=== PATIENT | female | born 2005 | race African-American/Black ===

== ENCOUNTER 2025-07-10 20:09 | Emergency (ER) | payer OTHER, SELFPAY ==
[2025-07-10 20:12] VITALS: BP 103/66; PULSE 85; RESP 14; TEMP 36.4; O2SAT 98
[2025-07-10 21:47] LABS: Hematocrit 35.4 % (37.0-47.0); Hemoglobin 11.5 g/dL (12.0-15.0); Immature Granulocyte Percent A 0.3 % (0-0.5); Immature Platelet Fraction Pct 2.8 % (0.9-11.2); Lymphocytes Absolute Auto 1.33 K/mm3 (0.9-3.2); Mean Corpuscular HGB Conc 32.5 g/dl (32-36); Mean Corpuscular Hemoglobin 24.4 pg (26-34); Mean Corpuscular Volume 75.0 fl (80-100); Nucleated Red Blood Cells Absolute Auto 0.000 K/mm3 (0.0-0.012); Nucleated Red Blood Cells Perc 0.0 % (0.0-0.2); Platelet Count Result 211 k/mm3 (150-375); Red Blood Count 4.72 M/mm3 (4.2-5.4); White Blood Count 10.5 K/mm3 (4.5-10.0)
[2025-07-10 21:58] LABS: Alanine Aminotransferase 17 U/L (6-35); Albumin Level 4.5 g/dL (3.5-5.1); Alkaline Phosphatase 74 U/L (38-126); Anion Gap 9 mmol/L (4-12); Aspartate Amino Transferase 31 U/L (14-36); Bilirubin,Total 0.5 mg/dL (0.2-1.3); Blood Urea Nitrogen 7 mg/dL (7-17); Calcium 9.2 mg/dL (8.4-10.2); Carbon Dioxide 21 mmol/L (22-30); Chloride 105 mmol/L (98-107); Estimated Glomerular Filt Rate > 60; Glucose 101 mg/dL (65-110); Lipase 109 U/L (23-300); Potassium 3.8 mmol/L (3.4-5.0); Sodium 135 mmol/L (137-145); Total Protein 8.4 g/dL (6.3-8.2)
[2025-07-10] MEDS: SODIUM CHLORIDE 0.9% IV 1,000 ML 999 ML IV CONT (22:17)
[2025-07-10 22:18] VITALS: BP 122/84; PULSE 72; RESP 16; TEMP 36.7; O2SAT 100
--- NOTE | 2025-07-10 22:18 | ED_ITS ---
HPI - Nausea/Vomiting/Diarrhea General Chief complaint: Nausea/Vomiting/Diarrhea Stated complaint: n/v x8, abdominal pain Time Seen by Provider: 07/10/25 21:23 Source: patient Mode of arrival: EMS Limitations: no limitations History of Present Illness HPI Narrative: This is a 20-year-old female that presents emergency department for nausea and vomiting. Reports this is common for her part to starting her menstrual period. She was given Zofran via EMS and has been hydrated. She is feeling better at this time. No abdominal pain currently. Denies fevers. Related Data Allergies Allergy/AdvReac Type Severity Reaction Status Date / Time albuterol Allergy Unknown Palpitation Verified 07/10/25 20:12 s Review of Systems 2 Review of Systems: All systems reviewed & are unremarkable except as noted in HPI and below PMFSH Past Medical History Medical History (Updated 07/10/25 @ 23:07 by Cathy Gloria PA-C) No active medical problems Exam 2 Narrative: GENERAL: Well-appearing, well-nourished, and in no acute distress. HEAD: Normocephalic, atraumatic. EYES: EOMI. CHEST: Clear to auscultation. No respiratory distress. No wheezes rales or rhonchi HEART: Regular rate and rhythm. No murmur heard. Normal peripheral pulses. ABDOMEN: Soft, nontender, nondistended, normal active bowel sounds. EXTREMITIES: Normal range of motion. No edema. SKIN: Warm, dry, no rash. NEURO: No focal deficits. Alert and oriented x3. PSYCH: Normal mood and affect Course Vital Signs Vital signs: Vital Signs Temperature 97.6 F 07/10/25 20:12 Pulse Rate 85 07/10/25 20:12 Respiratory Rate 14 07/10/25 20:12 Blood Pressure 103/66 07/10/25 20:12 Pulse Oximetry 98 07/10/25 20:12 Temperature 98.1 F 07/10/25 22:18 Pulse Rate 72 07/10/25 22:18 Respiratory Rate 16 07/10/25 22:18 Blood Pressure 122/84 07/10/25 22:18 Pulse Oximetry 100 07/10/25 22:18 Oxygen Delivery Room Air 07/10/25 22:18 MDM - Nausea/Vomiting/Diarrhea MDM Narrative Medical decision making narrative: Patient presents the emergency department for nausea and vomiting. Reports this is common for her when she starts her menstrual cycle. She is afebrile and nontoxic appearing. Her vitals are stable. Abdomen is soft and nontender. Patient reports relief after IV fluids and Zofran. CBC with mild leukocytosis to 10.5. Shows microcytic anemia hemoglobin of 11.5. Urine without overt evidence of infection. test is negative. Patient updated on her workup and agrees with plan of care. She is to follow up with primary provider. She was given warnings to return to the ER Differential Diagnosis Differential diagnosis: Likely food poisoning, gastroenteritis, dehydration and other (premenstrual syndrome) Lab Data Attestation: I reviewed the patient's lab results. 07/10/25 21:39 07/10/25 21:39 Labs: Lab Results 07/10/25 07/10/25 07/10/25 Range/Units 21:39 22:18 22:20 WBC 10.5 H (4.5-10.0) K/mm3 RBC 4.72 (4.2-5.4) M/mm3 Hgb 11.5 L (12.0-15.0) g/dL Hct 35.4 L (37.0-47.0) % MCV 75.0 L (80-100) fl MCH 24.4 L (26-34) pg MCHC 32.5 (32-36) g/dl RDW 16.5 H (11.5-14.5) % Plt Count 211 (150-375) k/mm3 MPV 10.3 (7.4-10.4) fl Immature Gran % (Auto) 0.3 (0-0.5) % Neut % (Auto) 80.2 H (45.5-73.1) % Lymph % (Auto) 12.7 L (18.3-44.2) % [place] % (Auto) 4.9 (2.6-8.5) % Eos % (Auto) 1.5 (0-4.4) % Baso % (Auto) 0.4 (0.2-1.2) % Lymph # (Auto) 1.33 (0.9-3.2) K/mm3 [place] # (Auto) 0.5 (0.1-0.6) K/mm3 Eos # (Auto) 0.2 (0-0.3) K/mm3 Baso # (Auto) 0.0 (0.0-0.1) K/mm3 Abs Immat Gran (auto) 0.03 (0.00-0.031) K/mm3 Absolute Neuts (auto) 8.4 H (1.3-6.7) K/mm3 Absolute Nucleated RBC 0.000 (0.0-0.012) K/mm3 Nucleated RBC % 0.0 (0.0-0.2) % % Immature Plt Fraction 2.8 (0.9-11.2) % Sodium 135 L (137-145) mmol/L Potassium 3.8 (3.4-5.0) mmol/L Chloride 105 (98-107) mmol/L Carbon Dioxide 21 L (22-30) mmol/L Anion Gap 9 (4-12) mmol/L BUN 7 (7-17) mg/dL Creatinine 0.59 L (0.7-1.0) mg/dL Estim Creat Clear Calc Not Reportable Estimated GFR > 60 (59 - ) Glucose 101 (65-110) mg/dL Calcium 9.2 (8.4-10.2) mg/dL Total Bilirubin 0.5 (0.2-1.3) mg/dL AST 31 (14-36) U/L ALT 17 (6-35) U/L Alkaline Phosphatase 74 (38-126) U/L Total Protein 8.4 H (6.3-8.2) g/dL Albumin 4.5 (3.5-5.1) g/dL Lipase 109 (23-300) U/L Urine Color Yellow (Yellow) Urine Appearance Cloudy H (Clear) Urine pH >=9.0 H (5.0-9.0) Ur Specific [place] 1.021 (1.001-1.035) Urine Protein 1+ H (Negative) mg/dL Urine Glucose (UA) Negative (Negative) mg/dL Urine Ketones Trace H (Negative) mg/dL Ur Blood (Man) 3+ H (Negative) Urine Nitrate Negative (Negative) Urine Bilirubin Negative (Negative) Urine Urobilinogen 1.0 (<2.0) mg/dL Leukocyte Esterase Rfl 1+ H (Negative) RENA/UL Urine RBC >100 H (0-2) /hpf Urine WBC 6-10 H (0-3) /hpf Ur Squamous Epith Cells None seen (Few) /hpf Urine Bacteria None seen /hpf Urine Casts 0-2 POC Urine HCG, Qual Negative (Negative) Critical Care Time Critical Care Time Critical Care Time: No Discharge Plan Discharge Clinical Impression: Nausea and vomiting Qualifiers: Vomiting type: unspecified Qualified Code(s): R11.2 - Nausea with vomiting, unspecified Patient Disposition: Home Condition: Improved Instructions: Acute Nausea and Vomiting (ED) Additional Instructions: Return to the ER if you experience fever, abdominal pain with nausea and vomiting, you are unable to keep down liquids or solids, pain or burning with urination, blood in the urine or any other symptoms that are concerning to you Small, frequent meals. [place] diet. Remain well hydrated Follow up with primary care doctor Patient Language: Kazakh Prescriptions: New ondansetron 4 mg tablet,disintegrating 4 mg PO Q8H PRN (Reason: nausea and vomiting) Qty: 10 0RF Follow-up/Referrals: UNKNOWN,DOCTOR [Primary Care Provider] - Stand Alone Forms: Work/School Release IP
[2025-07-10 22:20] LABS: BEDSIDEPREGUCG Negative (Negative)
--- OUTSIDE RECORDS SUMMARY | 2025-07-10 22:20 | XMS_ITS | Clinical Summary ---
Author Organization [facility] Address [address] [place] [address] Care Team Providers Care Battery Plate Assembler Name Role Phone Nicholas Mabry MD Primary Care Provider [phone] Bacilio Díaz Unavailable Unavailable Em Harman Unavailable Unavailable Social History Tobacco Use Types Packs/Day Years Used Date Smoking Tobacco: Never Assessed Comments Unknown Sex and Gender Information Value Date Recorded Sex Assigned at Not on file Legal Sex Female 7:30 PM THREE DIMENSIONAL MAP MODELER Gender Identity Not on file Sexual Orientation Not on file Plan of Treatment Health Maintenance Due Date Last Done Comments RSV (NIRSEVIMAB) Aged Out No longer e ligible based on patient's age to complete this topic Care Teams Battery Plate Assembler Relationship Specialty Start Date End Date Nicholas Mabry MD [address] [facility] [place] [address] PCP - General 04/20/09 Bacilio Díaz 08/12/10 Em Harman 08/12/10
--- OUTSIDE RECORDS SUMMARY | 2025-07-10 22:20 | XMS_ITS | Clinical Summary ---
Author Organization [facility] Address [address] [place] [address] Care Team Providers Care Gem Technician Name Role Phone Physician, Not [facility] Primary Care Provider Unavailable Allergies No known active allergies Medications Cyclobenzaprine (FLEXERIL) 10 MG PO Tab Take 2 Tabs by mouth three times per day as needed. 30 Tab 3 Active Acetaminophen (TYLENOL) 325 MG PO Tab Take 1-2 Tabs by mouth every 4 hours as needed for Mild Pain (Pain Scale 1-3). 30 Tab 3 Active Ibuprofen (MOTRIN) 600 MG PO Tab Take 1 Tab by mouth every 6 hours as needed. 30 Tab 3 Active Albuterol HFA Inhaler 108 (90 Base) MCG/ACT IN Aero Soln 2 Puffs inhale every 4 hours as needed. Please wait 5 minutes between puffs. Use with spacer. 1 Each 3 Active predniSONE 10 MG PO Tab Take Prednisone 40mg po daily x 2 days, Then Prednisone 30mg po daily x 2 days, Then Prednisone 20mg po daily x 2 days, Then Prednisone 10mg po daily x 2 days Then STOP. 20 Tab 3 Active Social History Tobacco Use Types Packs/Day Years Used Date Smoking Tobacco: Never Passive Smoke Exposure: Never Smokeless Tobacco: Never Tobacco Cessation:Counseling Given: Not Answered Comments No Sex and Gender Information Value Date Recorded Sex Assigned at Not on file Legal Sex Female 6:51 PM CDT Gender Identity Not on file Sexual Orientation Not on file Last Filed Vital Signs Vital Sign Reading Time Taken Comments Blood Pressure 124/76 11/18/2023 11:00 AM CAMPGROUND CARETAKER Pulse 105 11/18/2023 11:00 AM CAMPGROUND CARETAKER Temperature 37.6 C (99.6 F) 11/18/2023 11:00 AM CAMPGROUND CARETAKER Respiratory Rate 18 11/18/2023 11:00 AM CAMPGROUND CARETAKER Oxygen Saturation 99% 11/18/2023 11:00 AM CAMPGROUND CARETAKER Inhaled Oxygen Concentration - - Weight 82.6 kg (182 lb) 06/29/2023 11:34 AM CDT Height 167.6 cm (5' 6) 06/29/2023 11:34 AM CDT Body Mass Index 29.38 06/29/2023 11:34 AM CDT Plan of Treatment Health Maintenance Due Date Last Done Comments Depression Screening 2015 Physical 2021 PAP SMEAR 2024 COVID-19 Vaccine ( season) 2024 09/19/2021 DTaP/Tdap/Td Vaccines (7 - Td or Tdap) 09/15/2024 09/15/2014, 08/24/2007, 11/15/2004, Additional history exists FLU VACCINE (#1) 07/25/2025 12/22/2019, , 12/10/2017, Additional history exists Pneumococcal: Pediatric/ High Risk Adult 18-64 Aged Out 03/27/2006, 01/05/2005, 2003, Additional history exists No longer eligible based on patient's age to complete this topic HPV VACCINE Completed 09/26/2016, 08/25, 09/15/[address] [place] [address] ICD10 THIRD LIBERTARIAN LIABILITY ICD10 THIRD LIBERTARIAN LIABILITY Care Teams Gem Technician Relationship Specialty Start Date End Date PhysicianPao [facility] PCP - General 11/18/23
--- OUTSIDE RECORDS SUMMARY | 2025-07-10 22:20 | XMS_ITS | Encounter Summary ---
Author Organization [facility] Address [address] [place] [address] Care Team Providers Care Goat Driver Name Role Phone Ivis Olvera MD Primary Care Provider UnavailJm Mack MD Primary Care Provider + [phone] Pcp, Verify Primary Care Provider Unavailabl e Encounter Details Date Type Department Care Team (Late st Contact Info) Description 02/23/2021 Telephone [facility] [address] [place] [address] Group, [facility] [address] [place] [address] Social History Tobacco Use Types Packs/Day Years Used Date Smoking Tobacco: Never Smokeless Tobacco: Never Alcohol Use Standard Drinks/Week Comments Never 0 (1 standard drink = 0.6 oz pur e alcohol) PHQ-2 Answer Date Recorded PHQ-2 Score 2 02/08/2021 Inadequate Housing Answer Date Recorded Social Determinants: Housing (Overall Score Help er) 0 07/24/2019 Sexually Active Control Partners Comments Yes Condom Male Comments No Sex and Gender Information Value Date Recorded Sex Assigned at Not on file Legal Sex Female 1:18 PM CDT Gender Identity Not on file Sexual Orientation Not on file documented as of this encounter Miscellaneous Notes * Telephone Encounter - Shanae Swenson LPN - 02/23/2021 12:43 PM CDT Nurse appointment scheduled for 02/28/21 for Hep B per PCP * Telephone Encounter - Staci Robert N - 02/23/2021 12:25 PM CDT -- DO NOT REPLY / DO NOT REPLY ALL -- -- Message is from the [facility]-- COVID-19 [place] Screening: N/A - Not about scheduling General Patient Message Reason for Call: Patient returning call regards to her TB test results please call patient was informed to have parent available due to under 18. Caller Information Type Contact Phone 02/23/2021 12:23 PM CDT Phone (Incoming) Bela Ng (Self) [phone] (M) Alternative phone number: Turnaround time given to caller: This message will be sent to [state Provider's name]. The clinical team will fulfill your request as soon as they review your message. documented in this encounter Plan of Treatment Not on file documented as of this encounter Visit Diagnoses Not on filedocumented in this encounter Care Teams Goat Driver Relationship Specialty Start Date End Date Ivis Olvera MD PCP - General Pediatrics 01/22/21 05/15/21 Jm Gibbs MD [address] [address] PCP - General Pediatrics 05/16/21 02/19/25 Pcp, Verify PCP - General 02/20/25 documented as of this encounter
--- OUTSIDE RECORDS SUMMARY | 2025-07-10 22:20 | XMS_ITS | Encounter Summary ---
Author Organization [facility] Address [address] [place] [address] Care Team Providers Care Security Assistant Name Role Phone Ivis Olvera MD Primary Care Provider UnavailJm Mack MD Primary Care Provider + [phone] Pcp, Verify Primary Care Provider Unavailabl e Encounter Details Date Type Department Care Team (Late st Contact Info) Description 04/12/2021 Telephone [facility] [address] [place] [address] Group, [facility] [address] [place] [address] Social History Tobacco Use Types Packs/Day Years [...] encounter Miscellaneous Notes * Telephone Encounter - Ze Trevino - 04/12/2021 12:51 PM CDT -- DO NOT REPLY / DO NOT REPLY ALL -- -- Message is from the [facility]-- COVID-19 [place] Screening: N/A - Not about scheduling General Patient Message Reason for Call: 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 The clinical team will fulfill your request as soon as they review your message. documented in this encounter Plan of Treatment Not on file documented as of this encounter Visit Diagnoses Not on filedocumented in this encounter Care Teams Security Assistant Relationship Specialty Start Date End Date Ivis Olvera MD PCP - General Pediatrics 01/22/21 05/15/21 Jm Gibbs MD [address] [address] PCP - General Pediatrics 05/16/21 02/19/25 Pcp, Verify PCP - General 02/20/25 documented as of this encounter
--- OUTSIDE RECORDS SUMMARY | 2025-07-10 22:20 | XMS_ITS | Continuity of Care Document ---
Author Name [facility] Organization [facility] Care Team Providers Care Parcel Carrier Name Role Phone [facility] Unavailable Unavailable Results Combined list of recent chemistry, hematology and other laboratory results from [facility], ranging from 15 months to all on record, depending upon the facility. Order Name Results Value Reference Range Date Interpretation Specimen Comments Source Chemistry POC U HCG Negative (03/10/25 8:42 AM) Negative 03/[address] [place] [address] Vital Signs Combined list of inpatient and outpatient Vital Signs from [facility], ranging from 12 months to all on record, depending upon the facility. Vital Sign Value Date Comments Source Peripheral Pulse Rate 92 bpm 03/10/2025 11:34:[address] [place] [address] Systolic Blood Pressure 118 mm[Hg] 03/10/2025 11:34:[address] [place] [address] Diastolic Blood Pressure 71 mm[Hg] 03/10/2025 11:34:[address] [place] [address] Encounters Combined list of: 1) Encounters from [facility] facilities going backup to the last 18 months, not all VA inpatient encounters are included; 2) Encounters from the [facility] of Defense facilities going backup to 280 months. Location Location Details Encounter Type Encounter Number Reason For Visit Attending Provider ADM Date DC Date Status Disposition Source [facility] [id number] 02/03 [facility] [address] [place] [address] Outside Documentat ion Only [id number] 02/03 Discharge Disposition: Home or Self Care [address] [place] [address] Between Visit [id number] 02/03 Discharge Disposition: Home or Self Care [address] [place] [address] Mass Readiness [id number] 03/09 Discharge Disposition: Released Without Limitations [address] [place] [address] Procedures Combined list of: 1) Procedures from [facility] facilities going back up to thelast 18 months, not all VA non-surgical procedures are included; 2) All procedures from the [facility] Defense facilities. Procedure Procedure Type Code Date Perfomer Comments Sourc e No data available for this section Ambulatory P harmacy Social History Combined list of available smoking, tobacco, and other social history from [facility] and [facility] facilities. Social History Type Response Date Comment Sourc e Sex Representation Female (finding) 01/27/2025 Unknown Organization Sexual Orientation [facility] Gender identity [facility] Assessment and Plan Combined list of future care activities from [facility] and [facility] facilities (e.g., assessment and plan notes, appointments, orders, and referrals). Additional future care activities may be listed in the Plan of Care section. Result Assessment and Plan Date Source Assessment and Plan Extracted from:Title : Education Note Author: PERRY DOMINGUEZ Date: 03/10/25 07/11/[address] [place] [address] Functional Status Combined list of recent functional and cognitive assessments recorded at [facility] [place] Functional [place] Measurement (FIM) Scale: 1 = Total Assistance (Subject = 0% +), 2 = Maximal Assistance (Subject = 25% +), 3 = Moderate Assistance (Subject = 50% +), 4 = Minimal Assistance (Subject = 75% +), 5 = Supervision, 6 = Modified Path[place] (Device), 7 = Complete [place] (Timely, Safely). Assessment Date/Time Source Assessment Type Assessment Skill Assessment Score Assessment Details No data available for this section
--- OUTSIDE RECORDS SUMMARY | 2025-07-10 22:20 | XMS_ITS | Clinical Summary ---
Author Organization [facility] Address [address] [place] [address] Care Team Providers Care Internet Marketing Director Name Role Phone Pcp, Verify Primary Care Provider Unavailabl e Allergies Active Allergy Reactions Criticality Noted Date Comments Dust Other (See Comments) 03/10/2017 Grass Other (See Comments) 03/10/2017 Mold (Environmental) Other (See Comments) 03/10 Trees Other (See Comments) 03/10/2017 Medications losartan (COZAAR) 25 MG tabletIndications :Kidney disease, chronic, stage I (normal EGFR) TAKE 1/2 TABLET BY MOUTH DAILY 45 tablet 9 Active albuterol 108 (90 Base) MCG/ACT inhalerIndication s:Mild intermittent asthma without complication (CMD) Inhale 2 puffs into the lungs every 4 hours as needed for Shortness of Breath or Wheezing. 90 g 2 9 Active benzoyl peroxide-erythrom ycin (BENZAMYCIN) 5-3 % gelIndications:Ac ne vulgaris Apply pea sized amount to face after cleansing 23.3 g 0 Active ferrous sulfate (FeroSul) 325 (65 FE) MG tabletIndications :Iron deficiency anemia due to chronic blood loss Take 1 tablet by mouth 2 times daily (with meals). 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 Immunizations Immunization Administration Dates Next Due DTaP 08/24/2007, 4,2003,10/06,2003 DTaP/Hep B/IPV 2003 HIB (HbOC) 11/15/2004 HIB Hep B 2003 HIB, Unspecified Formulation 11/15/2004,10/06/20 03,2003 HPV 9-Valent 09/26/2016,09/14/2015 HPV Quadrivalent 09/15/2014 Hep A, Unspecified formulation 11/09/2013,2012 Hep A, ped/adol, 2 dose 11/09/2013,05/08/2013 Hep B, adolescent or pediatric 03/07/2021,2002,2003 Hep B, adult 2003 Hib (PRP-OMP) 2003,2003 IPV 08/24/2007, 5,2003,08/18 Influenza, quadrivalent, PF, pediatric 5 Influenza, split 10/18/2005 Influenza, split virus, quad rivalent, PF 12/22/2019,08/10/2018,12/10/2017,09/26,09/14/2015,09/15/2014 Influenza, split virus, trivalent, PF 10/09/2013 ,08/18/2010 MMR 08/02/2004 Measles Mumps Rubella Varicella 08/24/2007 Meningococcal B, OMV 02/08/2021,08/28/2020 Meningococcal Conjugate MCV4O 09/15/2014 Meningococcal Conjugate MCV4 P (Menactra) 10/27/2019,09/15/2014 Pneumococcal Conjugate 7 Valent 03/27/20 06,01/05/2005,2003,10/06,2003 Tdap 09/15/2014 Varicella 08/02/2004 Social History Tobacco Use Types Packs/Day Years Used Date Smoking Tobacco: Never Smokeless Tobacco: Never Tobacco Cessation:Counseling Given: Yes Alcohol Use Standard Drinks/Week Comments Never 0 [...] on file Sexual Orientation Not on file Obstetrics History Last Filed Vital Signs Vital Sign Reading Time Taken Comments Blood Pressure 121/76 02/08/2021 2:11 PM CDT Pulse 95 02/08/2021 2:11 PM CDT Temperature 37 C (98.6 F) 03/07/2021 3:18 PM CDT Respiratory Rate 20 08/28/2020 11:37 AM CDT Oxygen Saturation 100% 02/08/2021 2:11 PM CDT Inhaled Oxygen Concentration - - Weight 79.4 kg (175 lb 0.7 oz) 02/08/2021 2:11 P M CDT Height 167.6 cm (5' 6) 02/08/2021 2:11 PM CDT Body Mass Index 28.25 02/08/2021 2:11 PM CDT Plan of Treatment Health Maintenance Due Date Last Done Comments Depression Screening 2015 Chlamydia and Gonorrhea Screening (if sexually active) 02/09/2022 02/09/2021, 08/28/2020, 10/27/2019, Additional history exists COVID-19 Vaccine ( season) 2024 DTaP/Tdap/Td Vaccine (7 - Td or Tdap) 09/15/2024 09/15/2014, 08/24/2007, 11/15/2004, Additional history exists Influenza Vaccine (#1) 2025 , 08/10/2018, 12/10/2017, Additional history exists Pneumococcal Vaccine 0-49 Aged Out 2005, 01/05/2005, 2003, Additional history exists No longer eligible based on patient's age to complete this topic Varicella Vaccine Completed 08/24/2007, 08/02/2004 Hepatitis A Vaccine Completed 11/09/2013, 11/09/2013, 05/08/2013, Additional history exists HPV Vaccine Completed 09/26/2016, 08/25, 09/15/2014 Meningococcal Vaccine Completed 10/27/2019 , 09/15/2014, 09/15/2014 Meningococcal Serogroup B Vaccine Completed 02/08/2021, 08/28/2020 Hepatitis B Vaccine Completed 03/07/2021, 2003, 2003, Additional history exists Procedures Procedure Name Priority Date/Time Associated Diagnosis Comments CHLAMYDIA/GONORRHEA BY NUCLEIC ACID AMPLIFICATION Routine 02/09/2021 9:08 AM CDT Well adolescent visit from Last 3 Months or Most Recently Relevant to Health Maintenance Results * Chlamydia/Gonorrhea by Nucleic Acid Amplification (02/09/2021 9:08 AM CDT) Chlamydia trachomatis by Nucleic Acid Amplification Negative Negative [facility] 02/12/2021 6:28 PM CDT [facility] Neisseria gonorrhoeae by Nucleic Acid Amplification Negative Negative [facility] 02/12/2021 6:28 PM CDT [facility] Disclaimer The expected normal reference range is negative. Positive results are reported to the [facility] Department of Public Health. The Aptima Combo 2 Assay is not intended for the evaluation of suspected sexual abuse or for other medico-legal indications, nor has it been evaluated in adolescents less than 14 years of age. In these scenarios, and in clinical settings where the prevalence of infection is low, confirmatory testing on positive results is recommended. [facility] 02/12/2021 6:28 PM CDT [facility] Urine URINE SPECIMEN / Unknown Non-blood Collection / Unknown 02/09/2021 9:08 AM CDT 02/10/2021 4:30 AM CDT us Jm Gibbs MD [facility] DIAGN ORD Cuca l Result [facility] [address] [place] [address] from Last 3 Months or Most Recently Relevant to Health Maintenance Insurance [facility] Member Subscriber Plan / Payer (Ef fective 2022-Present) Name:Bela Holland Relation to Subscriber:Self Name:Bela Holland Payer ID:Not on file Group ID:Not on file Type:T19 O Address: [address] [place] [address] [place] [address] [facility] MEDICAID Member Subscriber Plan / Payer (Ef fective 2019-Present) Name:Bela Holland Relation to Subscriber:Child Name:BELA HOLLAND Date of :2003 (Home) Address: [address] [place] [address] Payer ID:Not on file Type:[id number] Address: [address] [place] [address] Care Teams Internet Marketing Director Relationship Specialty Start Date End Date Pcp, Verify PCP - General 02/20/25
--- OUTSIDE RECORDS SUMMARY | 2025-07-10 22:20 | XMS_ITS | Clinical Summary ---
Author Organization [facility] Address [address] [address] Care Team Providers Care Reviewer Sales Name Role Phone Unavailable Primary Care Provider Unavailabl e Allergies No known active allergies Active Problems Problem Noted Date Diagnosed Date Sore throat 03/14/2011 Aspiration of liquid 03/14/2011 Social History Tobacco Use Types Packs/Day Years Used Date Smoking Tobacco: Never Assessed Comments Unknown Sex and Gender Information Value Date Recorded Sex Assigned at Not on file Legal Sex Female 4:27 PM BEAD FILLER Gender Identity Not on file Sexual Orientation Not on file Last Filed Vital Signs Vital Sign Reading Time Taken Comments Blood Pressure 110/68 03/14/2011 9:59 PM CDT Pulse 110 03/14/2011 9:59 PM CDT Temperature 37.7 C (99.9 F) 03/14/2011 8:31 PM CDT Respiratory Rate 21 03/14/2011 9:59 PM CDT Oxygen Saturation 100% 03/14/2011 9:59 PM CDT Inhaled Oxygen Concentration - - Weight 35.2 kg (77 lb 9.6 oz) 03/14/2011 8:31 PM CDT Height - - Body Mass Index - - Plan of Treatment Health Maintenance Due Date Last Done Comments CERVICAL CANCER SCREENING 2003 HEPATITIS C SCREENING 2003 TDAP/TD VACCINE (1 - Tdap) 2014 DEPRESSION SCREENING 2015 HPV VACCINE (1 - 3-dose series) 2018 COVID-19 VACCINE ( - 2023-2 5 season) 2024 INFLUENZA VACCINE (#1) 2025 ZOSTER SERIES VACCINE (1 of 2) 2053 Adult RSV VACCINE (1 - 1-dos e 75+ series) 2078 HIV SCREENING Completed 2003 Pneumococcal Vaccine: Childh ood and At-Risk Adult <65 yo Series Aged Out No longe r eligible based on patient's age to complete this topic Procedures Procedure Name Priority Date/Time Associated Diagnosis Comments HIV1/HIV2 AB ROUTINE 2003 6:00 AM CDT from Last 3 Months or Most Recently Relevant to Health Maintenance Results * HIV1/HIV2 AB (2003 6:00 AM CDT) HIV1/HIV2 Ab EIA Nonreactive [facility] 2003 6:00 AM CDT 2003 9:56 AM CDT Elgin Bocanegra M.D. LAB CHEMISTRY ORDERABLES Fin al Result Performing Organization Address City/State/[facility] Co de Phone Number [facility] [address] [place] [address] from Last 3 Months or Most Recently Relevant to Health Maintenance Insurance [facility]/[employer] [place]
--- OUTSIDE RECORDS SUMMARY | 2025-07-10 22:20 | XMS_ITS | Clinical Summary ---
Author Organization [facility] Address [address] [place] [address] Care Team Providers Care Camp Cook Name Role Phone Joann William Primary Care Provider [phone] Social History Tobacco Use Types Packs/Day Years Used Date Smoking Tobacco: Never Assessed Comments Unknown Sex and Gender Information Value Date Recorded Sex Assigned at Not on file Legal Sex Female 1:57 PM EDT Gender Identity Not on file Sexual Orientation Not on file Plan of Treatment Health Maintenance Due Date Last Done Comments Hepatitis B Vaccine (1 of 3 - 19+ 3-dose series) 2022 Influenza Vaccine (#1) 2025 Pneumococcal Vaccine: Peds ( 0 to 5 Years) and At-Risk Patients (6 to 49 Years) Aged Out No longer eligible b ased on patient's age to complete this topic Insurance [address] [place] [address] [facility] Care Teams Camp Cook Relationship Specialty Start Date End Date Joann William [address] [place] [address] [facility] General 07/15/24
--- OUTSIDE RECORDS SUMMARY | 2025-07-10 22:20 | XMS_ITS | Encounter Summary ---
Author Organization [facility] Address [address] [place] [address] Care Team Providers Care County Records Management Officer Name Role Phone Jm Gibbs MD Primary Care Provider + [phone] Pcp, Verify Primary Care Provider Unavailabl e Encounter Details Date Type Department Care Team (Late st Contact Info) Description 07/02/[address] [facility] [address] [place] [address] Group, [facility] [address] [place] [address] Social History Tobacco Use Types Packs/Day Years [...] on file documented as of this encounter Plan of Treatment Not on file documented as of this encounter Visit Diagnoses Not on filedocumented in this encounter Care Teams County Records Management Officer Relationship Specialty Start Date End Date Jm Gibbs MD [address] [address] PCP - General Pediatrics 05/16/21 02/19/25 Pcp, Verify PCP - General 02/20/25 documented as of this encounter
--- OUTSIDE RECORDS SUMMARY | 2025-07-10 22:20 | XMS_ITS | Clinical Summary ---
Author Organization [facility] [address] Address [address] [place] [id number] Care Team Providers Care Customer Service Advocate Name Role Phone Stewart Joann HILARIO Primary Care Provider [phone] Allergies Active Allergy Reactions Criticality Noted Date Comments Albuterol Palpitations Low 07/12/2024 Grass Pollen Other (See comments) Low 03/10/2017 House Dust Other (See comments) Low 03/10/2017 Mold Extracts Other (See comments) Low 03/10/2017 Tree And Shrub Pollen Other (See comments) Low 02/22 Medications tranexamic acid (LYSTEDA) 650 mg tabletIndicatio ns:Menorrhagia Take 2 pills every 8 hours on heavy days for up to five days. It may take 24 hours before you see a difference in the amount of bleeding. 30 tablet 1 5 Active ferrous sulfate 325 mg (65 mg of elemental iron) tabletIndicatio ns:Iron Deficiency Anemia Take 1 tablet (325 mg total) by mouth 2 (two) times a day 60 tablet 3 5 Active Active Problems Problem Noted Date Diagnosed Date Beta thalassemia minor 04/20/2025 Overview (04/20/2025): 04/20/25- carrier screening positive Menorrhagia with regular cycle 02/23/2025 Assessment & Plan (02/23/2025 2:58 PM CDT): Options discussed She would like to try the lysteda Use reviewed. She may need a usg in the future Well woman exam 02/23/2025 Assessment & Plan (02/23/2025 2:58 PM CDT): Pap done. RTO 12m. I will send the results to the portal. If she has not heard in a week, to call the office. Nausea and vomiting 10/07/2023 Assessment & Plan (10/07/2023 2:49 PM BEAUTY CULTURIST APPRENTICE): The patient presents to the office today with evaluation of nausea and vomiting that she is been experiencing with the onset of her last 3 menses. We discussed the possibility of a hormone imbalance. We also discussed dehydration and her lack of water intake contributing to some of the symptoms. The patient would like to try increasing her hydration as well as incorporate more protein around her menses. She is going to download a period tracker madelin to monitor her symptoms. I will follow up with her in 2 months and we will see if she is had any improvement. We did discuss hormonal intervention in the way of oral contraceptive pills or the control patch to see if this would maybe improve some of her symptoms, as well as improve her acne. She we will call the office if symptoms worsen. Patient is in agreement with this plan of care. Intermittent asthma 08/10/2018 Assessment & Plan (07/12/2024 1:49 PM CDT): Controlled overall, rarely uses prn inhaler. Anemia 06/24/2017 Assessment & Plan (02/23/2025 2:54 PM CDT): To cbc, iron studies Kidney disease, chronic, stage I (normal EGFR) 0 03/10/2017 Assessment & Plan (07/12/2024 1:48 PM CDT): Patient saw Data Analytics Architect a few years ago, will get updated labs and may need specialist again. 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 Overview (04/20/2025): Hgb electrophoresis - only shows HgF 04/20/25- carrier screening shows Assessment & Plan (02/23/2025 2:55 PM CDT): She is not sure about this Has never been told her hgb is not normal Sore throat 03/14/2011 Resolved Problems Problem Noted Date Diagnosed Date Resolved Date Aspiration of liquid 03/14/2011 025 Encounters Date Type Department Care Team Description 04/19/2025 1:00 PM CDT Ancillary Procedure [facility] [address] [place] [address] [address] [place] [address] Menorrhagia with regular cycle from Last 3 Months Immunizations Immunization Administration Dates Next Due DTaP 08/24/2007, 4,2003,10/06,2003 DTaP / Hep B / IPV 2003 HPV, Quadrivalent 09/15/2014 HPV9 09/26/2016,09/14/2015 Hep A, Pediatric 11/09/2013,05/08/2013 Hep B / HiB 2003 Hep B Vaccine 2003 Hep B, Adolescent or Pediatric 03/07/2021,2002,2003 HiB 11/15/2004,2003,2003 IPV 08/24/2007, 5,2003,08/18 Influenza, Quadrivalent, Spl it, Pediatric, Preservative Free, Intramuscular 09/14/2015 Influenza, Quadrivalent, Spl it, Preservative Free, Intramuscular 12/22/2019,08/10/2018,12/10/2017,09/26,09/15/2014 Influenza, Split 10/18/2005 Influenza, Trivalent, Preser vative Free, Intramuscular 10/11/2024,10/09/2013,08/18/2010 Influenza, Unspecified 11/24/2023(Deferr ed: Patient Refused),11/24/2022(Deferred: Patient Refused) MMR 08/02/2004 MMRV 08/24/2007 Meningococcal B, OMV (Bexsero) 02/08/2021,2019 Meningococcal Conjugate (Menveo) 09/15/2014 Meningococcal MCV4P (Menactra) 10/27/2019 Pneumococcal Conjugate 7-Valent 03/27/20 06,01/05/2005,2003,10/06,2003 Tdap 09/15/2014 Varicella 08/02/2004 Surgical History Surgery Date Site/Laterality Comments RENAL BIOPSY Medical History Medical History Date Comments STI (sexually transmitted infection) Asthma Allergic Kidney disease Seizure (HCC) Family History Medical History Relation Name Comments Asthma Father Cancer Neg Hx no colon, breas t, uterine, or ovarian. pt adopted so does not have mothers history. sng 02/07/25 Relation Name Status Comments Father Social History Tobacco Use Types Packs/Day Years Used Date Smoking Tobacco: Former Cigarettes Vaping Smokeless Tobacco: Never Tobacco Cessation:Counseling Given: Not Answered Comments:No street drugs or mj. Humiliation, Afraid, Rape, and Kick questionnair e Answer Date Recorded Within the last year, have y ou been afraid of your partner or ex-partner? No 02/07/2025 Within the last year, have y ou been humiliated or emotionally abused in other ways by your partner or ex-partner? No Within the last year, have y ou been kicked, hit, slapped, or otherwise physically hurt by your partner or ex-partner? No 02/07/2025 Within the last year, have y ou been raped or forced to have any kind of sexual activity by your partner or ex-partner? No 02/07/2025 AUDIT-C Answer Date Recorded Q1: How often do you have a drink containing alc ohol? 2-4 times a month 02/07/2025 Q2: How many drinks containi ng alcohol do you have on a typical day when you are drinking? 1 or 2 02/07/2025 Q3: How often do you have si x or more drinks on one occasion? Never 02/07/2025 PHQ-2 Answer Date Recorded PHQ-2 Total Score (If total score is 3 or more points, staff should administer the PHQ-9) 0 02/07/2025 Comments Unknown Sex and Gender Information Value Date Recorded Sex Assigned at Not on file Legal Sex Female 3:02 PM CDT Gender Identity Not on file Sexual Orientation Not on file Obstetrics History Para Term AB IAB SAB Ectopic Multiple Livin g Live Births 1 1 0 Date Outcome GA Total Labor Labor/2nd/3rd Weight Sex Type Anes PTL Sandrine A1 A5 Name Clin AB Last Filed Vital Signs Vital Sign Reading Time Taken Comments Blood Pressure 108/60 02/07/2025 1:52 PM CDT Pulse 99 07/12/2024 1:05 PM CDT Temperature 36.1 C (97 F) 07/12/2024 1:05 PM CDT Respiratory Rate 20 09/14/2023 5:34 PM CDT Oxygen Saturation 99% 07/12/2024 1:05 PM CDT Inhaled Oxygen Concentration - - Weight 89.8 kg (197 lb 14.4 oz) 02/07/2025 1:52 PM CDT Height 165.1 cm (5' 5) 07/12/2024 1:05 PM CDT Body Mass Index 32.93 07/12/2024 1:05 PM CDT Plan of Treatment Health Maintenance Due Date Last Done Comments Pneumococcal vaccine <65 (1 of 2 - PPSV23, PCV20, or PCV21) 05/22/2006 03/27/2006, 01/05/2005, 2003, Additional history exists Meningococcal B Vaccine (3 o f 4 - Increased Risk Bexsero 3-dose series) 02/08/2022 02/08/2021, 08/28/2020 Covid-19 Vaccine (2 - 2023-2 5 season) 2024 09/19/2021 DTaP/Tdap/Td Vaccine (7 - Td or Tdap) 09/15/2024 09/15/2014, 08/24/2007, 11/15/2004, Additional history exists Influenza Vaccine (#1) 2025 , 12/22/2019, 08/10/2018, Additional history exists Cervical Cancer Screening 02/07/2026 02/07/2025 Chlamydia and Gonorrhea (GC/ CT) Screening 02/07/2026 02/07/2025, 01/28/2025 Depression Screening 02/07/2026 02/07/2025, 07/12/2024, 10/07/2023 Regular Well Visit/Exam 18-64 02/07/2026 02/07/2025, 07/12/2024 Varicella Vaccines Completed 08/24/2007, 08/02/2004 HPV Vaccines Completed 09/26/2016, 08/25, 09/15/2014 Hepatitis B Screening Completed 03/07/2021 , 2003, 2003, Additional history exists Hepatitis C Screening Completed 01/28/2025, 024 Procedures Procedure Name Priority Date/Time Associated Diagnosis Comments US PELVIS W ENDOVAGINAL Routine 04/19/2025 2:29 PM CDT Menorrhagia with regular cycle N. GONORRHOEAE/C. TRACHOMATIS AMPLIFICATION Routine 02/07/2025 1:57 PM CDT Screening for STD (sexually transmitted disease) PAP WITH REFLEX TO HIGH RISK HPV Routine 02/07/2025 11:17 AM CDT Well woman exam HEPATITIS C ANTIBODY Routine 01/28/2025 12:11 PM BEAUTY CULTURIST APPRENTICE Encounter for screening examination for sexually transmitted infection from Last 3 Months or Most Recently Relevant to Health Maintenance Results * US Pelvis W Endovaginal (04/19/2025 2:29 PM CDT) Cul de Sac Free fluid visualized VIEWPOINT Endometrial Thickness 12.1 mm&millim eters VIEWPOINT Anatomical Region Laterality Modality Pelvis N/A Ultrasound 04/19/2025 1:40 PM CDT Impressions 04/20/2025 2:37 PM CDT 1. The uterus is slightly enlarged with a thickened lining. No evidence of fibroids are visualized. 2. Normal-appearing ovaries. Narrative Procedure Note Ekta Ronquillo MD - 04/20/2025 IMPRESSION: 1. The uterus is slightly enlarged with a thickened lining. No evidenceof fibroids are visualized. 2. Normal-appearing ovaries. Ekta Ronquillo MD IMG US PROCEDURES F inal Result * N. gonorrhoeae/C. trachomatis Amplification Thin prep-Endocervical (02/07/2025 1:57 PM CDT) C. trachomatis Not Detected [facility] Comment:Testing performed by : [facility], [address] [place] [address]., [id number] N. gonorrhoeae Not Detected [facility] Comment: Interpretive Data This assay detects Chlamydia trachomatis and Neisseria gonorrhoeae by nucleic acid amplification testing (NAAT). This assay has been cleared by the [place] Food and Drug administration. The performance characteristics of this test have been verified by the [facility] Molecular Infectious Disease laboratory. The performance characteristics of this test have not been evaluated in individuals less than 14 years of age. Current Interpretive Data was last revised on 2023. Testing performed by: [facility], [address] [place] [address]., [id number] Thin prep-Endocervica l (None) 02/07/2025 1:57 PM CDT 02/08/2025 2:07 PM CDT Ekta Ronquillo MD LAB MICROBIOLOGY - GENERAL ORDERABLES Final Result [address] [place] [address] [facility] * Pap with reflex to High Risk HPV and Genotyping (Cytology Component) (02/07/2025 11:17 AM CDT) Thin prep (Pap test) 02/07/2025 11:17 AM CDT 02/07/2025 11:17 AM CDT Narrative PATHOLOGY CH - 02/09/2025 2:50 PM CDT [facility] Department of Pathology [address] [place] [id number] Final Report Note to Patients: This report may contain a detailed description of human tissue sent by a health care provider to the laboratory for pathologic evaluation. The content of this report is essential for diagnosis and may provide important critical findings. This information may be unfamiliar to patients to review without a medical professional present. It is advised that the patient review this report in the presence of a health care provider who can answer questions and explain the details. Patient Name: BELA HOLLAND Address: [address] [place] [address], [place] [address] Gender: F : 2005 (Age: 19) Service: Location: [facility] : [id number] [facility] #: [id number] Patient Type: SPECIMEN Taken: 02/07/2025 Received: 02/07/2025 Accessioned:: 02/08/2025 Reported: 02/09/2025 Physician(s): Dano Watt M.D. Diagnosis: SOURCE OF SPECIMEN Imaged Thinprep Pap Test w/ Reflex HPV - Underwear Cutter Cytologic Material: STATEMENT OF ADEQUACY - Satisfactory for evaluation; endocervical/transformation zone component present GENERAL CATEGORIZATION: - Negative for intraepithelial lesion or malignancy TY Escoto(ASCP) Report Electronically Reviewed and Signed Out By TY Escoto(ASCP) 02/09/2025 14:50:33Specimen(s) Received: A: Imaged Thinprep Pap Test w/ Reflex HPV - Underwear Cutter Cytologic Material Clinical History: The Pap test is a screening test used to aid in the detection of cervical cancer and its precursors. It should not be the sole means by which malignant and premalignant lesions are diagnosed. Both false negative and false positive results may occur. It also has poor sensitivity for the detection of endometrial lesions and should not be used to evaluate suspected endometrial abnormalities. For these reasons it is most important to obtain Pap tests at regular intervals. The performance characteristics of some immunohistochemical stains, fluorescence in-situ hybridization tests and immunophenotyping by flow cytometry cited in this report (if any) were determined by the Surgical Pathology Department at [facility] as part of an ongoing quality control engineer program and in compliance with federally mandated regulations drawn from the Clinical Laboratory Improvement Act of 1988 (CLIA '88). Some of these tests rely on the use of analyte specific reagents and are subject to specific labeling requirements by the [place] Food and Drug Administration. Such diagnostic tests may only be performed in a facility that is certified by the Department of Health and Human Services as a high complexity laboratory under CLIA '88. The FDA has determined that such clearance or approval is not necessary. This test is used for clinical purposes. It should not be regarded as investigational or for research. Nevertheless, federal rules concerning the medical use of analyte specific reagents require that the following disclaimer be attached to the report: This test was developed and its performance characteristics determined by the Surgical Pathology Department [facility]. It has not been cleared or approved by the U. S. Food and Drug Administration. Ekta Ronquillo MD LAB CYTOLOGY ORDERA BLES Final Result Performing Organization Address [facility] Co de Phone Number [facility] [address] [place] [address] * Hepatitis C antibody Blood (01/28/2025 12:11 PM BEAUTY CULTURIST APPRENTICE) Hep C Ab Nonreactive Nonreactive Comment: Interpretive Data Nonreactive: Antibodies to HCV not detected. Does NOT exclude the possibility of recent exposure to HCV. Equivocal: Equivocal for HCV antibodies. Supplemental molecular testing will be automatically performed to determine infection status in accordance with current CDC screening recommendations. Reactive: Positive for HCV antibodies. This may represent current or past HCV infection. Supplemental molecular testing will be automatically performed to determine current infection status in accordance with current CDC screening recommendations. Interpretive data was last revised on 2020. Blood 01/28/2025 12:1 1 PM BEAUTY CULTURIST APPRENTICE 01/28/2025 10:31 PM BEAUTY CULTURIST APPRENTICE Ekta Ronquillo MD LAB MICROBIOLOGY - GENERAL ORDERABLES Final Result Performing Organization Address [facility] Co de Phone Number [facility] [phone] [place] [address] from Last 3 Months or Most Recently Relevant to Health Maintenance Insurance [facility] Care Teams Customer Service Advocate Relationship Specialty Start Date End Date Joann William NP [address] [place] [address] PCP - General Family Medicine 07/12/24
[2025-07-10 22:31] LABS: Add Urine Microscopic? YES; Appearance Urine Cloudy (Clear); Glucose Urine UA Negative (Negative); Leukocyte Esterase Ur 1+ LEU/UL (Negative); Nitrate Urine Negative (Negative); Non Pathogenic Casts 0-2; Specific Grav Ur 1.021 (1.001-1.035)
[2025-07-10 23:25] VITALS: BP 124/87; PULSE 70; RESP 16; TEMP 36.7; O2SAT 97
== END 2025-07-10 23:27 | disposition home or self-care (01) ==
PROVIDERS: Emergency Provider Physician Assistant
DX: R11.2 Nausea with vomiting, unspecified (principal)
CPT/HCPCS: 36415; 80053; 81001; 81025; 83690; 85025; 85055; 87086; 96360; 99283; J7030

== ENCOUNTER 2025-10-11 16:25 | Emergency (ER) | payer OTHER, SELFPAY ==
--- OUTSIDE RECORDS SUMMARY | 2020-10-23 07:00 | XMS_ITS | Continuity of Care Document ---
Author Organization [facility] Address [address] [place] [address] Phone Care Team Providers Care Shove Up Name Role Phone Ekta Gilmore OD Unavailable Unavailabl e Allergies, Adverse Reactions, Alerts Substance Reaction Status Criticality No Known Allergies Active No Inform ation Medications Medication Instructions Dosage Effective Dates (start - stop) Status Comments ALBUTEROL SULFATE HFA (unknown strength) Not Available - Active XOPENEX (unknown strength) Not Available - Active Procedures Procedure Date REFRACTION EYE EXAM NEW PATIENT COMP REFRACTION EYE EXAM & TREATMENT COMP REFRACTION EYE EXAM & TREATMENT COMP REFRACTION EYE EXAM & TREATMENT COMP EYE EXAM & TREATMENT COMP REFRACTION EYE EXAM, NEW PATIENT COMP REFRACTION EYE EXAM, NEW PATIENT COMP REFRACTION Advance Directives Directive Yes / No Effective Date File Name No Information Encounters Encounter Description Practice Location Reason(s) For Visit Diagnoses Date Provider Providers Copied on Encounter [facility] , [facility] [place], [place], [id number] , [place] tel: [phone] Pediatrics and Binocular Vision tearing OU (chief complaint) Hypermetropia, bilateralDry eye syndrome of bilateral lacrimal glands 0 0 Deirdre Dash. [facility] [place], [place], [id number], [place]. tel:[phone] [facility] , [address] [place] [address], [id number] , tel: [facility] Itching and tearing (chief complaint) Blurry Vision (chief complaint) Hypermetropia, bilateralOther chronic allergic conjunctivitis 7 No Information [facility] , [address] [place] [address], [id number] , tel:[phone] [facility] Blurry vision (chief complaint) Hypermetropia, bilateral 6 Mehrdad Norman. [address] [place] [address], [id number], [place]. tel:[phone] [facility] , [address] [place] [address], [id number] , [place] tel:[phone] [facility] Blurry vision (chief complaint) Hyperopia 5 No Information [facility] , [address] [place] [address], [id number] , tel: [facility] Presbyopia/ Accommodative InsufficiencyOth er chronic allergic conjunctivitis 4 No Information [facility] , [address] [place] [address], [id number] , [place] tel:[phone] [facility] HyperopiaRegular astigmatism 3 No Information [facility] , [address] [place] [address], [id number] , tel:[phone] [facility] HypermetropiaHyp ermetropia 2 No Information Family History Family Member Type Diagnosis Age At Onset Mother Problem (finding) No history of Diabetes mellitus Father Problem (finding) No history of Diabetes mellitus Father Problem (finding) No history of Glaucoma Mother Problem (finding) No history of Glaucoma Payers Payer name Insurance type Covered republican ID Authoriza tion(s) No Information Social History Type Description Quantity Date Captured Comments Alcohol Use Details Unknown Caffeine Use Details Unknown Tobacco Use Status No Information Smoking Status No Information Sex Female Chief Complaint And Reason For Visit From encounter dated '10/23/2020 13:00'. tearing OU (chief complaint). Description: The 15 year 4 month old female presents for evaluation of tearing OU. Pt complains of occasional tearing and irritation, especially when she focuses on something for too long. Pt was given glasses for reading when she was younger but doesn't feel she needs them. Pt is a senior in high school, school is entirely virtual, doing well.EDGARDO: 1 year ago, [place] [facility]: 6 mo ago, unremarkable Reason For Referral Reason For Referral No Information Plan Of Treatment Date Type Action Status Patient Education Herbie: Care Instructi ons completed History Of Present Illness Encounter Date Complaint History Of Prese nt Illness tearing OU The 15 year 4 mo nth old female presents for evaluation of tearing OU. Pt complains of occasional tearing and irritation, especially when she focuses on something for too long. Pt was given glasses for reading when she was younger but doesn't feel she needs them. Pt is a senior in high school, school is entirely virtual, doing well.EDGARDO: 1 year ago, [place] [facility]: 6 mo ago, unremarkable Itching and tearing The 12 year old female presents for itching and assocaited injection. Pt notes itching began about a year ago. Presents more so during the spirng months. Pt reports itching is OU, OD> OS. Pt reports no temporary relief or use of OTC AT. Ranks severity of itching 06/02. Pt seen at [facility] [place]. Pt entering 9th grade in the fall and earned A's and B's this past school year. Previously wore an sRx but stopped wearing because pt doesn't like them. LME: January 2017; pt had kidney biopsy December 2016 EDGARDO: May 2016; unremarkable Blurry Vision Patient complain s of periodic blurry vision at near only. Reports blurry vision equal OU. Onset of blurry vision about a week ago. Typically associated when using cell phone. Finds temporary relief by blinking several times. Ranks severity of blurry vision 2/10. Blurry vision The 11 year old female presents for a comprehensive eye exam at the [facility] [place]. She reports blurry vision OU when stares at something. Pt is starting the 8th grade. Pt has glasses but does not wear then often- only when reading. Content with current glasses. Good grades in school. Starting 8th grade in the fallNeeds a vision report for school.EDGARDO: 07/05/2015- unremarkableLME: 2014 Blurry vision The 10 year 1 mo nth old female presents for Blurry vision at near. Seen at [facility]. SHe is entering 7th grade. SHe currently wears reading glasses, but reports she doesn't wear them that often. She denies tearing burning itching and redness.EDGARDO 1 year agoLME 1 year ago- MHx remarkable for astham and seasonal allergies Functional Status Date Functional Assessmen t No Information Instructions Date Instruction Additional Infor mation Impression/Plan - Pt educated on exam findings. No spectacle Rx warranted at this time. RTC in 1 year for comprehensive exam, or sooner if any symptoms arise. Related to Hypermetropia, bilateral Impression/Plan - Pt educated on exam findings. Recommended PFATs PRN OU for any symptoms. If no improvement, RTC for follow up. Related to Dry eye syndrome of bilateral lacrimal glands Impression/Plan - Ne w sRx released for NWO. Education material provided; vision report card. RTC in 1 year for CEE. Related to Hypermetropia, bilateral Impression/Plan - Pt and mother educated on using Zatador QID for relief of tearing and itching. Both expressed understaning. RTC in 1 year unless symptoms worsen. Related to Other chronic allergic conjunctivitis Impression/Plan - Ne w sRx released for NVO. Education material provided; vision report card. RTC in 1 year for CEE. 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 Monitor annually, sooner if problems arise. 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 Related to Hyperopia Follow up - Return i n 1 year with Rosaline Chaudhari for Comprehensive Eye Exam. Related to Hyperopia Impression/Plan - SR X for school/near only. Vision report card given. Related to Hyperopia Allergic Conjunctivi tis OD, OS - Patient and Mother educated on allergies. Recommended she purchase either Zaditor or Elestat OTC drops for itchiness. If symptoms worsen, The patient should RTC. Monitory Yearly. Related to Presbyopia 1) Accomodative Insu fficency OD, OS - Educational materials provided: Vision summary report. Discussed Prescription with Patient and her Mother. SRx released for near work only. Monitor Yearly Related to Presbyopia - Return in 1 year w Rosaline Grewal for Comprehensive Eye Exam. Related to Hypermetropia Compound hyperopic a stigmatism OU - SRx released for NVO. Monitor annually or sooner if problems arise. Educational materials provided: vision report card. Related to Hypermetropia Hypermetropia OU - S Rx released for NVO/FTW as needed. Guardian ed glasses may improve comfort of reading. Monitor for changes yearly. Related to Hypermetropia - Return in 1 year w Leatha Rahman for Comprehensive Eye Exam. Related to Hypermetropia Assessments Type Assessment Date assessment Hypermetropia, bilateral 2019 impression Hypermetropia, bilateral: H52.03 assessment Dry eye syndrome of bilateral la crimal glands impression Dry eye syndrome of bilateral lacrimal glands: H04.123.-Symptomatic for tearing and irritation OU Patient Care Teams Name Effective Dates (start - stop) Status Members No Information
--- OUTSIDE RECORDS SUMMARY | 2020-10-23 07:00 | XMS_ITS | Continuity of Care Document ---
Author Organization [facility] Address [address] [place] [address] Phone Care Team Providers Care Quality Liaison Name Role Phone Ekta Gilmore OD Unavailable [...] Diagnoses Date Provider Providers Copied on Encounter [facility] , [facility] [place], [place], [id number] , [place] tel: [phone] Pediatrics and Binocular Vision tearing OU (chief complaint) Hypermetropia, bilateralDry eye syndrome of bilateral lacrimal glands 0 0 Deirdre Dash. [facility] [place], [place], [id number], [place]. tel:[phone] [facility] , [address] [place] [address], [id number] , tel: [facility] Itching and tearing (chief complaint) Blurry Vision (chief complaint) Hypermetropia, bilateralOther chronic allergic conjunctivitis 7 No Information [facility] , [address] [place] [address], [id number] , tel:[phone] [facility] Blurry vision (chief complaint) Hypermetropia, bilateral 6 Mehrdad Norman. [address] [place] [address], [id number], [place]. tel:[phone] [facility] , [address] [place] [address], [id number] , [place] tel:[phone] [facility] Blurry vision (chief complaint) Hyperopia 5 No Information [facility] , [address] [place] [address], [id number] , tel: [facility] Presbyopia/ Accommodative InsufficiencyOth er chronic allergic conjunctivitis 4 No Information [facility] , [address] [place] [address], [id number] , [place] tel:[phone] [facility] HyperopiaRegular astigmatism 3 No Information [facility] , [address] [place] [address], [id number] , tel:[phone] Pediatrics and Binocular Vision HypermetropiaHyp ermetropia 2 No Information Family History Family Member Type Diagnosis Age At Onset Mother Problem (finding) No history of Diabetes mellitus Father Problem (finding) No history of Diabetes mellitus Father Problem (finding) No history of Glaucoma Mother Problem (finding) No history of Glaucoma Payers Payer name Insurance type Covered libertarian ID Authoriza tion(s) No Information Social History [...] entirely virtual, doing well.EDGARDO: 1 year ago, [place] IEILME: 6 mo ago, unremarkable Reason For [...] entirely virtual, doing well.EDGARDO: 1 year ago, [place] IEILME: 6 mo ago, unremarkable Itching and tearing The 12 year old female presents for itching and assocaited injection. Pt notes itching began about a year ago. Presents more so during the spirng months. Pt reports itching is OU, OD> OS. Pt reports no temporary relief or use of OTC AT. Ranks severity of itching 06/02. Pt seen at [facility] at [place]. Pt entering 9th grade in the fall [...] comprehensive eye exam at the [facility] at [place]. She reports blurry vision OU when stares [...] for Blurry vision at near. Seen at [facility]. SHe is entering 7th grade. SHe currently [...] to Hypermetropia, bilateral Return in 1 year Rosaline Bar for Comprehensive Eye Exam. Related to [...]
[2025-10-11 16:27] VITALS: BP 118/71; PULSE 83; RESP 18; TEMP 36.6; O2SAT 100
[2025-10-11 19:48] VITALS: BP 108/59; PULSE 84; RESP 20; TEMP 36.6; O2SAT 100
[2025-10-11 21:29] VITALS: BP 103/69; PULSE 85; RESP 20; O2SAT 99
[2025-10-11 21:32] VITALS: BP 103/69; PULSE 79; RESP 18; O2SAT 99
[2025-10-11] MEDS: SODIUM CHLORIDE 0.9% IV 1,000 ML 999 ML IV CONT (21:59)
[2025-10-11 22:06] LABS: BEDSIDEPREGUCG Negative (Negative)
[2025-10-11 22:10] LABS: Hematocrit 29.1 % (37.0-47.0); Hemoglobin 9.0 g/dL (12.0-15.0); Immature Granulocyte Percent A 0.2 % (0-0.5); Immature Platelet Fraction Pct 2.8 % (0.9-11.2); Lymphocytes Absolute Auto 1.26 K/mm3 (0.9-3.2); Mean Corpuscular HGB Conc 30.9 g/dl (32-36); Mean Corpuscular Hemoglobin 21.1 pg (26-34); Mean Corpuscular Volume 68.1 fl (80-100); Nucleated Red Blood Cells Absolute Auto 0.000 K/mm3 (0.0-0.012); Nucleated Red Blood Cells Perc 0.0 % (0.0-0.2); Platelet Count Result 227 k/mm3 (150-375); Red Blood Count 4.27 M/mm3 (4.2-5.4); White Blood Count 9.0 K/mm3 (4.5-10.0)
[2025-10-11 22:14] LABS: Add Urine Microscopic? YES; Appearance Urine Cloudy (Clear); Glucose Urine UA Negative (Negative); Leukocyte Esterase Ur Trace LEU/UL (Negative); Nitrate Urine Negative (Negative); Non Pathogenic Casts 0-2; Specific Grav Ur 1.021 (1.001-1.035)
[2025-10-11 22:24] LABS: Alanine Aminotransferase 13 U/L (6-35); Albumin Level 4.6 g/dL (3.5-5.1); Alkaline Phosphatase 62 U/L (38-126); Anion Gap 9 mmol/L (4-12); Aspartate Amino Transferase 29 U/L (14-36); Bilirubin,Total 0.4 mg/dL (0.2-1.3); Blood Urea Nitrogen 9 mg/dL (7-17); Calcium 9.5 mg/dL (8.4-10.2); Carbon Dioxide 21 mmol/L (22-30); Chloride 105 mmol/L (98-107); Estimated CRCL calculation 144 ml/min; Estimated Glomerular Filt Rate > 60; Glucose 107 mg/dL (65-110); Potassium 4.0 mmol/L (3.4-5.0); Sodium 135 mmol/L (137-145); Total Protein 8.3 g/dL (6.3-8.2)
[2025-10-11 22:42] LABS: Anisocytosis 1+; Hypochromasia 1+; Schistocytes None Seen; Target Cells Occasional
--- NOTE | 2025-10-11 23:19 | PC.NURSE ---
This RN received report from Maribel HOLGUIN.
[2025-10-11 23:26] VITALS: BP 112/68; PULSE 63; RESP 12; O2SAT 99
--- NOTE | 2025-10-11 23:34 | ED_ITS ---
HPI - General Adult General Chief complaint: Headache Stated complaint: ERICKSON-emesis X1 Time Seen by Provider: 10/11/25 21:35 History of Present Illness HPI narrative: Patient is a 20-year-old female who presents emergency department chief complaint of headache patient states that she recently started a new control pill reports she has had issues with anemia patient states that she has not required transfusions in the past patient states that her headache is doing better at this time Related Data Allergies Allergy/AdvReac Type Severity Reaction Status Date / Time albuterol Allergy Unknown Palpitation Verified 10/11/25 21:32 s Review of Systems 2 Review of Systems: A 10 system review of systems was completed on the patient and is negative except for what is stated in the HPI. Nursing and ancillary documentation was reviewed. PMFSH Past Medical History Medical History No active medical problems Exam 2 Narrative: GENERAL: Well-appearing, well-nourished, and in no acute distress. HEAD: Normocephalic, atraumatic. EYES: PERRLA and EOMI. ENT: Nares clear, no rhinorrhea or epistaxis. Mucous membranes moist. NECK: Supple. CHEST: Clear to auscultation. No respiratory distress. HEART: Regular rate and rhythm. No murmur heard. Normal peripheral pulses. ABDOMEN: Soft, nontender, nondistended, normal active bowel sounds. EXTREMITIES: Normal range of motion. No edema. SKIN: Warm, dry, no rash. NEURO: No focal deficits. Alert and oriented x3. PSYCH: Normal mood and affect. Course Vital Signs Vital signs: Vital Signs Temperature 36.6 C 10/11/25 16:27 Pulse Rate 83 10/11/25 16:27 Respiratory Rate 18 10/11/25 16:27 Blood Pressure 118/71 10/11/25 16:27 Pulse Oximetry 100 10/11/25 16:27 Oxygen Delivery Room Air 10/11/25 16:27 Temperature 36.6 C 10/11/25 19:48 Pulse Rate 63 10/11/25 23:26 Respiratory Rate 12 10/11/25 23:26 Blood Pressure 112/68 10/11/25 23:26 Pulse Oximetry 99 10/11/25 23:26 Oxygen Delivery Room Air 10/11/25 21:29 Medical Decision Making MDM Narrative Medical decision making narrative: Differential diagnosis includes electrolyte abnormality, anemia, urinary tract infection, Bedside test was negative urinalysis showed trace leukocyte esterase but otherwise negative CBC showed a white count of 9.0 hemoglobin was 9.0 platelet count was 227 electrolytes showed no significant abnormality Patient received a L normal saline is x-ray artery feeling better at this time The patient be discharged home to follow-up with her primary care provider Vital Signs Vital Signs: Vital Signs Temperature 36.6 C 10/11/25 16:27 Pulse Rate 83 10/11/25 16:27 Respiratory Rate 18 10/11/25 16:27 Blood Pressure 118/71 10/11/25 16:27 Pulse Oximetry 100 10/11/25 16:27 Oxygen Delivery Room Air 10/11/25 16:27 Temperature 36.6 C 10/11/25 19:48 Pulse Rate 63 10/11/25 23:26 Respiratory Rate 12 10/11/25 23:26 Blood Pressure 112/68 10/11/25 23:26 Pulse Oximetry 99 10/11/25 23:26 Oxygen Delivery Room Air 10/11/25 21:29 Lab Data 10/11/25 22:00 10/11/25 22:00 Labs: Lab Results 10/11/25 10/11/25 Range/Units 22:00 22:04 WBC 9.0 (4.5-10.0) K/mm3 RBC 4.27 (4.2-5.4) M/mm3 Hgb 9.0 L (12.0-15.0) g/dL Hct 29.1 L (37.0-47.0) % MCV 68.1 L (80-100) fl MCH 21.1 L (26-34) pg MCHC 30.9 L (32-36) g/dl RDW 18.7 H (11.5-14.5) % Plt Count 227 (150-375) k/mm3 MPV 9.4 (7.4-10.4) fl Immature Gran % (Auto) 0.2 (0-0.5) % Neut % (Auto) 78.4 H (45.5-73.1) % Lymph % (Auto) 14.0 L (18.3-44.2) % [place] % (Auto) 5.7 (2.6-8.5) % Eos % (Auto) 1.1 (0-4.4) % Baso % (Auto) 0.6 (0.2-1.2) % Lymph # (Auto) 1.26 (0.9-3.2) K/mm3 [place] # (Auto) 0.5 (0.1-0.6) K/mm3 Eos # (Auto) 0.1 (0-0.3) K/mm3 Baso # (Auto) 0.1 (0.0-0.1) K/mm3 Abs Immat Gran (auto) 0.02 (0.00-0.031) K/mm3 Absolute Neuts (auto) 7.1 H (1.3-6.7) K/mm3 Absolute Nucleated RBC 0.000 (0.0-0.012) K/mm3 Band Neutrophils % Not Reportable Nucleated RBC % 0.0 (0.0-0.2) % Platelet Estimate Adequate (Adequate) % Immature Plt Fraction 2.8 (0.9-11.2) % Hypochromasia 1+ Anisocytosis 1+ Target Cells Occasional Schistocytes None seen Sodium 135 L (137-145) mmol/L Potassium 4.0 (3.4-5.0) mmol/L Chloride 105 (98-107) mmol/L Carbon Dioxide 21 L (22-30) mmol/L Anion Gap 9 (4-12) mmol/L BUN 9 (7-17) mg/dL Creatinine 0.60 L (0.7-1.0) mg/dL Estim Creat Clear Calc 144 ml/min Estimated GFR > 60 (59 - ) Glucose 107 (65-110) mg/dL Calcium 9.5 (8.4-10.2) mg/dL Total Bilirubin 0.4 (0.2-1.3) mg/dL AST 29 (14-36) U/L ALT 13 (6-35) U/L Alkaline Phosphatase 62 (38-126) U/L Total Protein 8.3 H (6.3-8.2) g/dL Albumin 4.6 (3.5-5.1) g/dL Urine Color Yellow (Yellow) Urine Appearance Cloudy H (Clear) Urine pH 8.0 (5.0-9.0) Ur Specific [place] 1.021 (1.001-1.035) Urine Protein Trace (Negative) mg/dL Urine Glucose (UA) Negative (Negative) mg/dL Urine Ketones Negative (Negative) mg/dL Ur Blood (Man) Negative (Negative) Urine Nitrate Negative (Negative) Urine Bilirubin Negative (Negative) Urine Urobilinogen 1.0 (<2.0) mg/dL Leukocyte Esterase Rfl Trace H (Negative) RENA/UL Urine RBC 0-2 (0-2) /hpf Urine WBC 0-5 (0-3) /hpf Ur Squamous Epith Cells Occasional (Few) /hpf Urine Bacteria Rare /hpf Urine Casts 0-2 POC Urine HCG, Qual Negative (Negative) Discharge Plan Discharge Clinical Impression: Headache, Anemia Patient Disposition: Home Condition: Stable Instructions: Antibiotic Form, Acute Headache (ED), Anemia (ED) Patient Language: Georgian Prescriptions: No Action ondansetron 4 mg tablet,disintegrating 4 mg PO Q8H PRN (Reason: nausea and vomiting) Qty: 10 0RF Follow-up/Referrals: Yevgeniy Cain MD [Physician, Family Practice] UNKNOWN,DOCTOR [Primary Care Provider]
--- OUTSIDE RECORDS SUMMARY | 2025-10-12 03:45 | XMS_ITS | Encounter Summary ---
Author Organization [facility] Address [address] [place] [address] Care Team Providers Care Advanced Quality Engineer Name Role Phone Ivis Olvera MD Primary Care Provider UnavailJm Mack MD Primary Care Provider + [phone] Pcp, Verify Primary Care Provider Unavailabl e Encounter Details Date Type Department Care Team (Late st Contact Info) Description 04/12/2021 Telephone [facility] [address] [place] [address] Group, [facility] [address] [place] [address] Social History Tobacco Use Types Packs/Day Years [...] is from the [facility]-- COVID-19 [place] Screening: N/A - Not about scheduling General Patient Message Reason for Call: The patient is calling in because 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 The clinical team will fulfill your request as soon as they review your message. documented in this encounter Plan of Treatment Not on file documented as of this encounter Visit Diagnoses Not on filedocumented in this encounter Care Teams Advanced Quality Engineer Relationship Specialty Start Date End Date Ivis Olvera MD PCP - General Pediatrics 01/22/21 05/15/21 Jm Gibbs MD [address] [address] PCP - General Pediatrics 05/16/21 02/19/25 Pcp, Verify PCP - General 02/20/25 documented as of this encounter
--- OUTSIDE RECORDS SUMMARY | 2025-10-12 03:45 | XMS_ITS | Clinical Summary ---
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 Immunizations Immunization Administration Dates Next Due DTaP [...] Depression Screening 2015 Chlamydia and Gonorrhea Screening 02/09/2022 02/09/2021, 08/28/2020, 10/27/2019, Additional history exists DTaP/Tdap/Td Vaccine (7 - Td or Tdap) 09/15/2024 09/15/2014, 08/24/2007, 11/15/2004, Additional history exists COVID-19 Vaccine ( season) 2025 Influenza Vaccine (#1) 2025 , 08/10/2018, 12/10/2017, Additional history exists Pneumococcal Vaccine 0-49 Aged Out 2005, 01/05/2005, 2003, Additional history exists No longer eligible based on patient's age to complete this topic Varicella Vaccine Completed 08/24/2007, 08/02/2004 Hepatitis A Vaccine Completed 11/09/2013, 11/09/2013, 05/08/2013, Additional history exists HPV Vaccine Completed 09/26/2016, 08/25, 09/15/2014 Hepatitis C Screening Discontinued 12/16/2016 Meningococcal Vaccine Completed 10/27/2019 , 09/15/2014, 09/15/2014 Meningococcal Serogroup B Vaccine Completed 02/08/2021, 08/28/2020 Hepatitis B Vaccine Completed 03/07/2021, 2003, 2003, Additional history exists Procedures Procedure Name Priority Date/Time Associated Diagnosis Comments CHLAMYDIA/GONORRHEA BY NUCLEIC ACID AMPLIFICATION Routine 02/09/2021 9:08 AM CDT Well adolescent visit HEPATITIS C ANTIBODY WITH REFLEX Routine 12/16/2016 11:30 AM CARE TRANSITIONS MANAGER from Last 3 Months or Most Recently [...] negative. Positive results are reported to the [facility] Department of Public Health. The [facility] [...] l Result [facility] [address] [place] [address] * Hepatitis C Antibody with Reflex (12/16/2016 11:30 AM CARE TRANSITIONS MANAGER) HEPATITIS C ANTIBODY NEGATIVE NEGATIVE [facility] [place] 12/16/2016 11:3 0 AM CARE TRANSITIONS MANAGER 12/17/2016 1:29 AM CARE TRANSITIONS MANAGER Narrative [facility] [place] - 12/24/2016 4:49 PM CARE TRANSITIONS MANAGER Performed At: [facility] [place] [facility] Lesly Lucio MD LAB BLOOD ORDERABLES Final Resu lt [facility] [place] [address] [place] [address] from Last 3 Months or Most Recently Relevant to Health Maintenance Insurance Member Subscriber Plan / Payer (Ef fective 2022-Present) Name:Bela Holland Relation to Subscriber:Self Name:Bela Holland Payer ID:Not on file Group ID:Not on file Type:[id number] [facility] Address: [address] [address] [facility] MEDICAID Member Subscriber Plan / Payer (Ef fective 2019-Present) Name:Bela Holland Relation to Subscriber:Child Name:BELA HOLLAND Date of :2003 (Home) Address: [address] [place] [address] Payer ID:Not on file Type:[id number] Address: [address] [place] [address] Care Teams Air Boatswain Relationship Specialty Start Date End Date Pcp, Verify PCP - General 02/20/25
--- OUTSIDE RECORDS SUMMARY | 2025-10-12 03:45 | XMS_ITS | Encounter Summary ---
Author Organization [facility] Address [address] [place] [address] Care Team Providers Care Career Resource Specialist Name Role Phone Jm Gibbs MD Primary Care Provider + [phone] Pcp, Verify Primary Care Provider Unavailabl e Encounter Details Date Type Department Care Team (Late st Contact Info) Description 07/02/2022 Telephone [facility] [address] [place] [address] Group, [facility] [address] [place] [address] Social History Tobacco Use Types Packs/Day Years [...] on filedocumented in this encounter Care Teams Career Resource Specialist Relationship Specialty Start Date End Date Jm Gibbs MD [address] [address] PCP - General Pediatrics 05/16/21 02/19/25 Pcp, Verify PCP - General 02/20/25 documented as of this encounter
--- OUTSIDE RECORDS SUMMARY | 2025-10-12 03:46 | XMS_ITS | Encounter Summary ---
Author Organization [facility] Address [address] [place] [address] Care Team Providers Care Melt Room Operator Name Role Phone Ivis Olvera MD Primary Care Provider UnavailJm Mack MD Primary Care Provider + [phone] Pcp, Verify Primary Care Provider Unavailabl e Encounter Details Date Type Department Care Team (Late st Contact Info) Description 02/23/2021 Telephone [facility] [address] [place] [address] Group, [facility] [address] [place] [address] Social History Tobacco Use Types Packs/Day Years [...] is [facility] the [facility]-- COVID-19 [place] Screening: N/A - Not about scheduling General Patient Message Reason for Call: Patient returning call regards to her TB test results please call patient was informed to have parent available due to under 18. Caller Information Type Contact Phone 02/23/2021 12:23 PM CDT Phone (Incoming) Bela Ng (Self) [phone] (M) Alternative phone number: Turnaround time given to caller: This message will be sent to [state Provider's name]. The clinical team will fulfill your request as soon as they review your message. documented in this encounter Plan of Treatment Not on file documented as of this encounter Visit Diagnoses Not on filedocumented in this encounter Care Teams Melt Room Operator Relationship Specialty Start Date End Date Ivis Olvera MD PCP - General Pediatrics 01/22/21 05/15/21 Jm Gibbs MD [address] [address] PCP - General Pediatrics 05/16/21 02/19/25 Pcp, Verify PCP - General 02/20/25 documented as of this encounter
== END 2025-10-11 23:55 | disposition home or self-care (01) ==
PROVIDERS: Emergency Provider Emergency Medicine
DX: R51.9 Headache, unspecified (principal); D64.9 Anemia, unspecified
CPT/HCPCS: 36415; 80053; 81001; 81025; 85025; 85055; 96360; 99283; J7030